=== PATIENT | male | born 1955 | race Caucasian/White ===

== ENCOUNTER 2019-09-17 20:25 | Emergency (ER) | payer BC ==
[~2019-09-17] VITALS: Ht 193 cm; Wt 63.6 kg
[2019-09-17 20:30] VITALS: BP 142/95
[2019-09-17] MEDS ORDERED: PERM60CR19 TP (20:40)
== END 2019-09-17 20:45 | disposition home or self-care (01) ==
LOC: ER 20:26
DX: B86 Scabies (principal); Z79.899 Other long term (current) drug therapy
CPT/HCPCS: 99283

== ENCOUNTER 2020-06-17 08:33 | Emergency (ER) | payer BC ==
[~2020-06-17] VITALS: Ht 193 cm; Wt 102.7 kg
[~2020-06-17 08:33] MED LIST: PERM60CR19 TP
[2020-06-17 09:34] LABS: BASOPHILS # (AUTO) 0.1 X10'3 (0-0.2); EOSINOPHILS # (AUTO) 0.1 X10'3 (0-0.9); HEMATOCRIT 47.5 % (42.0-52.0); HEMOGLOBIN 16.1 g/dl (14.0-17.9); LYMPHOCYTES # (AUTO) 0.8 X10'3 (1.1-4.8); LYMPHOCYTES % (AUTO) 13.6 % (21-51); MEAN CORPUSCULAR HEMOGLOBIN 30.4 PG (27.0-31.0); MEAN CORPUSCULAR VOLUME 89.4 FL (78-98); MEAN PLATELET VOLUME 7.8 FL (7.4-10.4); MONOCYTES # (AUTO) 1.3 X10'3 (0-0.9); MONOCYTES % (AUTO) 22.3 % (2-12); NEUTROPHILS # (AUTO) 3.5 X10'3 (1.8-7.7); NEUTROPHILS % (AUTO) 61.1 % (42-75); PLATELET COUNT 223 X10'3 (140-440); RED BLOOD COUNT 5.32 X10'6 (4.70-6.10); WHITE BLOOD COUNT 5.7 X10'3 (4.5-11.0)
[2020-06-17 09:43] LABS: CLARITY,URINE CLEAR (Clear); COLOR,URINE YELLOW (Yellow); GLUCOSE, URINE NEGATIVE (Neg); KETONES,URINE NEGATIVE (Neg); LEUKOCYTE ESTERASE ,URINE NEGATIVE (Neg); NITRITES, URINE NEGATIVE (Neg); OCCULT BLOOD,URINE SMALL (Neg); PROTEIN,URINE NEGATIVE (Neg)
[2020-06-17 09:48] LABS: ALANINE AMINOTRANSFERASE 24 U/L (12-78); ALBUMIN 3.7 G/DL (3.4-5.0); ALKALINE PHOSPHATASE 84 IU/L (46-116); ANION GAP 10 (8-16); ASPARTATE AMINO TRANSFERASE 11 U/L (10-37); BILIRUBIN,TOTAL 1.9 MG/DL (0.1-1.0); BLOOD UREA NITROGEN 17 MG/DL (7-18); BUN/CREATININE RATIO 14.5 (5.4-32.0); CALCIUM 9.1 MG/DL (8.5-10.1); CHLORIDE 102 MMOL/L (99-107); CREATININE 1.17 MG/DL (0.60-1.10); GLUCOSE 129 MG/DL (70-104); LIPASE 173 U/L (73-393); POTASSIUM 3.3 MMOL/L (3.5-5.1); SODIUM 140 MMOL/L (135-145); TOTAL CARBON DIOXIDE 27.7 MMOL/L (24-32); TOTAL PROTEIN 7.4 G/DL (6.4-8.2); eGFR 63 ML/MIN
[2020-06-17 09:49] LABS: UA COLLECTION TYPE CLN CATCH MIDSTREAM
[2020-06-17 09:50] LABS: WBC,URINE 0-4 /HPF (0-4)
[2020-06-17 09:51] LABS: BACTERIA,URINE NONE SEEN /HPF (Neg); RBC,URINE NONE SEEN /HPF (0-2); SQUAMOUS EPITHELIAL CELL,UR FEW /LPF (FEW)
[2020-06-17 09:57] LABS: PLATELET ESTIMATE NORMAL; TOTAL CELLS COUNTED 100
--- NOTE | 2020-06-17 10:29 | NUR ---
PATIENT STATES HE WAS HAVING DIARRHEA FOR 3 DAYS. THINKS HE MAY HAVE GOTTEN FOOD POISONING. TOOK IMODIUM AND REPORTS SOFT, NORMAL STOOL TODAY. STATES HE FEELS DEHYDRATED, BUT NO LONGER HAS DIARRHEA.
[2020-06-17] MEDS ORDERED: normal saline 1000ML IV soln IV ONE (10:35)
[2020-06-17 14:01] VITALS: BP 113/61
== END 2020-06-17 14:02 | disposition home or self-care (01) ==
LOC: ER 08:33
DX: R10.84 Generalized abdominal pain (principal); R19.7 Diarrhea, unspecified; R68.83 Chills (without fever); R61 Generalized hyperhidrosis; Z79.2 Long term (current) use of antibiotics
CPT/HCPCS: 36415; 71045; 74176; 80053; 81001; 83605; 83690; 84145; 85007; 85025; 87040; 96360; 99285; J7030